=== PATIENT | female | born 1940 | race Caucasian/White ===

== ENCOUNTER 2016-11-22 07:46 | Emergency (ER) | payer OTHER ==
[2016-11-22 07:58] VITALS: RESP 18; TEMP 98; O2SAT 97
[2016-11-22] MEDS ORDERED: ACETAMINOPHEN 325 MG TAB PO ONE (08:08)
--- NOTE | 2016-11-22 08:14 | EDPHY ---
H & P Stated Complaint: trip hit head/rt upper leg - no LOC HPI/ROS: CHIEF COMPLAINT: Head and neck pain after fall HISTORY OF PRESENT ILLNESS: This is a 76-year-old female on Coumadin for remote history of PE/DVT who had a mechanical trip and fall last night. There were no preceding symptoms such as lightheadedness or chest pain. She fell forward, catching herself on her outstretched hands. She somehow struck her forehead. There was no loss of consciousness. She presents today complaining of headache and neck pain. The neck pain is bilateral. She denies paresthesias , weakness, bowel or bladder problems. She took Tylenol last night for headache and slept fitfully. REVIEW OF SYSTEMS: A ten point review of systems was performed and is negative with the exception of the items mentioned in the HPI. No recent illnesses. Source: Patient Exam Limitations: No limitations - Personal History Current Tetanus Diphtheria and Acellular Pertussis (TDAP): Yes - Medical/Surgical History Hx Asthma: No Hx Chronic Respiratory Disease: No Hx Diabetes: No Hx Cardiac Disease: Yes Hx Renal Disease: No Hx Cirrhosis: No Hx Alcoholism: No Hx HIV/AIDS: No Hx Splenectomy or Spleen Trauma: No Other PMH: PULM EMBOLI 2013 ON COUMADIN. HIP FX X 2. CHOLECYSTECTOMY. RIGHT SHOULDER INJ/SURGERY. HTN. HYPOTHYROID - Social History Smoking Status: Never smoked Additional Social History: She is currently living with her granddaughter, granddaughter's son, and granddaughter's boyfriend. She does not use tobacco products. She drinks alcohol occasionally. 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. - Physical Exam Exam: General Appearance: Alert. Vital signs reviewed. Head: Normocephalic. There is an abrasion across the right forehead. Mild swelling involving the right forehead and upper eyelid. No facial bone tenderness or deformity. Eyes: Pupils equal and round, no conjunctival injection, no discharge. Anicteric. ENT, Mouth: Mucous membranes are moist, no oropharyngeal erythema or edema. Dentition intact. Neck: Tender to palpation throughout the entire cervical spine and paraspinous muscles. No step-offs or deformities. Respiratory: Lungs are clear to auscultation; no wheezes, rales, or rhonchi. Cardiovascular: Regular rate and rhythm; no murmur, rub, or gallop. Gastrointestinal: Abdomen is soft and nontender, no masses or organomegaly, bowel sounds normal. Skin: Warm and dry, no rashes on exposed skin, normal color. Back: Nontender to palpation over the thoracolumbar spine. Extremities: No lower extremity edema, no calf tenderness or swelling. No long bone tenderness or deformity. Neurological: Alert and oriented. Moving all four extremities easily and equally. Cranial nerves II through XII are examined and are intact with the exception of decreased hearing to finger rub (visual acuity not tested). Strength is 5 over 5 bilaterally with testing of all major motor groups. Sensation is intact to light touch over all 4 extremities. Psychiatric: Normal affect. Constitutional: Initial Vital Signs Temperature (C) 36.6 C 11/22/16 07:55 Heart Rate 69 11/22/16 07:55 Respiratory Rate 18 11/22/16 07:55 Blood Pressure 160/92 H 11/22/16 07:55 O2 Sat (%) 97 11/22/16 07:55 O2 Delivery Mode Room Air Allergies/Adverse Reactions: Sulfa (Sulfonamide Antibiotics) [Sulfa(Sulfonamide Antibiotics)] Allergy ( Intermediate, Verified 11/10/14 21:37) nausea shellfish derived Allergy (Verified 11/11/15 15:01) Vomiting Home Medications: Medication Instructions Recorded Levothyroxine [Synthroid 25 mcg 25 mcg PO DAILY06 07/07/12 (*)] Warfarin Sodium [Coumadin 5MG (*)] 5 mg PO DAILY16 01/17/14 Atorvastatin Calcium [Lipitor 40 40 mg PO HS 11/10/15 mg (*)] Diltiazem HCl [Cartia XT 240mg] 240 mg PO DAILY 11/10/15 Docusate Sodium [Colace 100 MG (*)] 100 mg PO DAILY 11/10/15 Eszopiclone [Lunesta] 2 mg PO HS PRN 11/10/15 Polyethylene Glycol 3350 [Miralax 17 gm PO DAILY 11/10/15 17 gm (*)] Valsartan/Hydrochlorothiazide 1 tab PO DAILY 11/10/15 [Valsartan-Hctz 160-12.5 mg Tab] Cyclobenzaprine [Cyclobenzaprine 5 mg PO Q6-8PRN PRN #60 tab 11/14/15 HCl] Warfarin Sodium [Coumadin 5MG (*)] 10 mg PO ONCE #2 tab 11/14/15 Medical Decision Making - Diagnostics Imaging Results: Imaging Impressions Cervical Spine CT 11/22/16 08:08 Impression: 1. No acute fracture or soft tissue swelling. 2. If the patient has persistent pain or neurologic deficits, consider cervical spine MRI. Findings discussed with Emergency Department physician, Dr. Alexa Luque on November 22, [address] 11/22/16 08:08 Impression: 1. No acute intracranial hemorrhage. 2. No acute fracture. 3. Right frontal scalp swelling. Findings discussed with Emergency Department physician, Dr. Alexa Luque on November 22, 2016 at 0843 hours. . ED Course/Re-evaluation: Head and neck pain in a patient on Coumadin who has fallen. Will check head CT and cervical spine CT. She is given Tylenol for pain relief. Differential Diagnosis: Considered a differential diagnosis that includes but is not limited to skull fracture, facial bone fracture, intracranial hemorrhage, concussion, abrasion, cervical sprain, cervical strain, cervical fracture, and spinal cord injury. - Data Points Medications Given: Discontinued Medications Acetaminophen (Tylenol) 650 mg PO EDNOW ONE Stop: 11/22/16 08:09 Last Admin: 11/22/16 08:17 Dose: 650 mg Departure - Departure Disposition: Home, Routine, Self-Care Clinical Impression: Cervical sprain Qualifiers: Encounter type: initial encounter Qualified Code(s): S13.9XXA - Sprain of joints and ligaments of unspecified parts of neck, initial encounter Forehead abrasion Qualifiers: Encounter type: initial encounter Qualified Code(s): S00.81XA - Abrasion of other part of head, initial encounter Condition: Good Instructions: Cervical Sprain (ED), Abrasion (ED) Additional Instructions: Continue with Tylenol for pain. You can take 650 mg every 4 hours and I recommend that you do so regularly for the next couple of days. Do not take more than 3000 mg of Tylenol in a 24 hour time period. If you develop severe persistent headache, new numbness, new weakness, problems controlling her bowels or bladder, you should be re-evaluated immediately. Follow up with Dr. Yanez as needed or if symptoms are not improving. Referrals: Ale Yanez MD [Primary Care Provider] - As per Instructions
[2016-11-22 09:11] VITALS: BP 147/62; PULSE 85
== END 2016-11-22 09:10 | disposition home or self-care (01) ==
LOC: CED 07:46
DX: S13.9XXA Sprain of joints and ligaments of unspecified parts of neck, initial encounter (principal); S00.81XA Abrasion of other part of head, initial encounter; I10 Essential (primary) hypertension; Z79.01 Long term (current) use of anticoagulants; W01.0XXA Fall on same level from slipping, tripping and stumbling without subsequent striking against object, initial encounter
CPT/HCPCS: 70450-PO; 72125-PO

== ENCOUNTER → 2017-01-24 | Outpatient (CLI) | payer OTHER | LOC: BMCIMAGING 12:57 | PROVIDERS: ATTEND Physician Assistant | DX: S82.092A Other fracture of left patella, initial encounter for closed fracture (principal) ==

== ENCOUNTER → 2017-02-04 | Outpatient (CLI) | payer OTHER | LOC: BMCIMAGING 10:03 | PROVIDERS: ATTEND Physician Assistant | DX: S82.045D Nondisplaced comminuted fracture of left patella, subsequent encounter for closed fracture with routine healing (principal) ==

== ENCOUNTER → 2017-02-17 | Outpatient (CLI) | payer OTHER | LOC: BMCIMAGING 10:14 | PROVIDERS: ATTEND Physician Assistant | DX: S82.002A Unspecified fracture of left patella, initial encounter for closed fracture (principal); W19.XXXA Unspecified fall, initial encounter ==

== ENCOUNTER → 2017-03-04 | Outpatient (CLI) | payer OTHER | LOC: BMCIMAGING 14:50 | PROVIDERS: ATTEND Physician Assistant | DX: S82.045D Nondisplaced comminuted fracture of left patella, subsequent encounter for closed fracture with routine healing (principal) ==

== ENCOUNTER → 2017-10-13 | Outpatient (CLI) | payer OTHER | LOC: BMCIMAGING 14:59 | PROVIDERS: ATTEND Family Medicine | DX: Z12.31 Encounter for screening mammogram for malignant neoplasm of breast (principal) ==

== ENCOUNTER → 2017-10-14 | Outpatient (CLI) | payer OTHER | LOC: BMCIMAGING 09:36 | PROVIDERS: ATTEND Family Medicine | DX: M81.0 Age-related osteoporosis without current pathological fracture (principal); E03.9 Hypothyroidism, unspecified; Z78.0 Asymptomatic menopausal state ==

== ENCOUNTER → 2018-10-16 | Outpatient (CLI) | payer OTHER | LOC: BMCIMAGING 14:46 | PROVIDERS: ATTEND Family Medicine | DX: Z12.31 Encounter for screening mammogram for malignant neoplasm of breast (principal) ==